=== PATIENT | male | born 1970 | race Caucasian/White ===

== ENCOUNTER 2016-10-30 13:59 | Emergency (ER) | payer OTHER ==
[~2016-10-30] VITALS: Ht 182.9 cm; Wt 127.0 kg
[~2016-10-30 13:59] MED LIST: CEPH-37; HYDR-1421; IBU800T; SULF400T11
[2016-10-30 14:16] VITALS: BP 137/93
[2016-10-30] MEDS: KETOROLAC TROMETH 60MG/2ML VIAL IM ONE (15:53)
== END 2016-10-30 16:11 | disposition home or self-care (01) ==
LOC: ER 13:59
DX: S63.502A Unspecified sprain of left wrist, initial encounter (principal); S09.90XA Unspecified injury of head, initial encounter; S00.03XA Contusion of scalp, initial encounter; I10 Essential (primary) hypertension; F41.9 Anxiety disorder, unspecified; E66.9 Obesity, unspecified; Z68.38 Body mass index [BMI] 38.0-38.9, adult; Z87.442 Personal history of urinary calculi; W01.0XXA Fall on same level from slipping, tripping and stumbling without subsequent striking against object, initial encounter; Y93.89 Activity, other specified; Y99.8 Other external cause status; Y92.89 Other specified places as the place of occurrence of the external cause
CPT/HCPCS: 70450; 70486; 73110; 96372; 99284; J1885

== ENCOUNTER 2017-01-20 05:43 | Emergency (ER) | payer OTHER ==
[~2017-01-20] VITALS: Ht 182.9 cm; Wt 122.5 kg
[2017-01-20 06:03] VITALS: BP 161/85
[2017-01-20] MEDS ORDERED: KETOROLAC TROMETH 60MG/2ML VIAL IM ONE (07:00)
== END 2017-01-20 06:55 | disposition left against medical advice (07) ==
LOC: ER 05:43
DX: M54.5 Low back pain (principal); M25.532 Pain in left wrist; I10 Essential (primary) hypertension; Z87.442 Personal history of urinary calculi; Z79.899 Other long term (current) drug therapy; V03.99XA Pedestrian with other conveyance injured in collision with car, pick-up truck or van, unspecified whether traffic or nontraffic accident, initial encounter; Y93.89 Activity, other specified; Y99.8 Other external cause status; Y92.89 Other specified places as the place of occurrence of the external cause

== ENCOUNTER 2017-03-27 08:55 | Emergency (ER) | payer OTHER ==
[~2017-03-27] VITALS: Ht 188 cm; Wt 131.5 kg
[2017-03-27 08:56] VITALS: BP 0/0
[2017-03-27] MEDS ORDERED: SODIUM BICARBONATE 8.4% INJ 50ML SYRINGE IV ONE (15:23)
[2017-03-27] MEDS ORDERED: EPINEPHrine HCL 1 MG/10 ML SYRG IV ONE (15:23)
== END 2017-03-27 13:28 | disposition expired ==
LOC: ER 08:55 → EDBD 08:55 → ER 13:28
DX: I46.9 Cardiac arrest, cause unspecified (principal); Z79.899 Other long term (current) drug therapy; E78.5 Hyperlipidemia, unspecified; I10 Essential (primary) hypertension
CPT/HCPCS: 92950; 99291; J0171